=== PATIENT | male | born 1985 | race Caucasian/White ===

== ENCOUNTER 2017-09-14 13:33 | Emergency (ER) | payer SELFPAY ==
[~2017-09-14] VITALS: Ht 182.8 cm; Wt 104.3 kg
[~2017-09-14 13:33] MED LIST: 'PARAFON FORTE500 M1 PO; BACTRIM DS 8001 TA1 PO; BACTROBAN CREAM15 GM T; CEPHALEXIN500 M1 PO; CIPRO500 MG PO; HYDROCODONE BIT1 T11 PO; KEFLEX500 MG PO; MOTRIN800 MG PO; NAPROSYN500 MG PO; NORCO 325 MG-51 TAB PO; OMNICEF300 MG PO; PERCOCET 325 MG1 TA7 PO; SEPTRA DS 800 M1 TAB PO; TRAMADOL HCL50 MG PO; TRIMOX500 MG PO; ULTRAM50 MG PO; VICODIN 5-3001 EACH PO; VICODIN 500 MG-1 TAB PO; VICODIN ES 7501 TAB PO
[2017-09-14] MEDS ORDERED: SEPTDS PO (14:15)
[2017-09-14] MEDS ORDERED: NORCO 5-325 TA1 EACH PO (14:15)
== END 2017-09-14 14:52 | disposition home or self-care (01) ==
LOC: ED 13:33
DX: L02.416 Cutaneous abscess of left lower limb (principal); F17.200 Nicotine dependence, unspecified, uncomplicated

== ENCOUNTER 2019-01-02 13:20 | Emergency (ER) | payer OTHER ==
[~2019-01-02] VITALS: Wt 106.6 kg
[~2019-01-02 13:20] MED LIST changes: +NORCO 5-325 TA1 EACH PO; +SEPTDS PO
[2019-01-02 14:07] LABS: BASO % 0.1 % (0.0-1.0); EOS # 0.2 10*3/uL (0.0-0.4); EOS % 1.9 % (1.0-4.0); HEMATOCRIT 49.3 % (42.0-52.0); HEMOGLOBIN 16.7 g/dl (14.0-18.0); LYMPH % 10.7 % (27.0-41.0); MEAN CELL VOLUME 89.3 fl (80.0-94.0); MEAN CORPUSCULAR HGB 30.3 pg (27.0-31.0); MEAN CORPUSCULAR HGB CONC 33.9 g/dl (33.0-37.0); MEAN PLATELET VOLUME 10.8 fl (9.6-12.3); MONO # 1.1 10*3/uL (0.1-1.0); MONO % 11.7 % (3.0-9.0); NEUT # 7.2 10*3/uL (2.3-7.9); NEUT % 75.3 % (47.0-73.0); PLATELET COUNT AUTOMATED 180 10*3/uL (130-400); RED BLOOD COUNT 5.52 10*6/uL (4.50-5.90); RED CELL DISTRI WIDTH 12.6 % (0-14.5); WHITE BLOOD COUNT 9.5 10*3/uL (4.8-10.8)
[2019-01-02 14:24] LABS: ALBUMIN 3.9 gm/dl (3.1-4.5); ALKALINE PHOSPHATASE 56 U/L (45-117); BUN 18 mg/dl (7-24); CHLORIDE 103 mmol/L (98-107); CREATININE 1.09 mg/dL (0.70-1.30); LIPASE 87 U/L (73-393); SGOT/AST 20 IU/L (3-35); SGPT/ALT 31 U/L (12-78); SODIUM 138 mmol/L (136-145); TOTAL PROTEIN 7.6 gm/dL (6.4-8.2)
[2019-01-02 15:59] LABS: BILIRUBIN NEGATIVE (NEGATIVE); BLOOD NEGATIVE (NEGATIVE); CLARITY CLEAR (CLEAR); COLOR YELLOW (YELLOW); GLUCOSE NEGATIVE (NEGATIVE); KETONE NEGATIVE (NEGATIVE); LEUKO ESTERASE NEGATIVE (NEGATIVE); NITRITE NEGATIVE (NEGATIVE); PH 5.5 (5.0-9.0); UROBILINOGEN 0.2 E.U./dl (0.2-1.0)
[2019-01-02] MEDS ORDERED: ZOFRAN4 MG PO (16:26)
[2019-01-02 16:29] LABS: BACTERIA TRACE; EPITHELIAL CELLS 0-2; WBC 0-2 wbc/hpf (0-5)
== END 2019-01-02 16:40 | disposition home or self-care (01) ==
LOC: ED 13:20
PROVIDERS: Nurse Practitioner Family
DX: A08.4 Viral intestinal infection, unspecified (principal); F17.200 Nicotine dependence, unspecified, uncomplicated; Z87.19 Personal history of other diseases of the digestive system

== ENCOUNTER 2019-09-23 12:39 | Emergency (ER) | payer OTHER ==
[~2019-09-23] VITALS: Ht 182.8 cm; Wt 108.9 kg
[~2019-09-23 12:39] MED LIST changes: +ZOFRAN4 MG PO
[2019-09-23] MEDS ORDERED: IBU800 MG PO (13:49)
[2019-09-23] MEDS ORDERED: ANTIBIOTIC28.4 GM T (13:49)
[2019-09-23] MEDS ORDERED: DOXYCYCLINE100 M3 PO (13:49)
== END 2019-09-23 13:59 | disposition home or self-care (01) ==
LOC: ED 12:39
DX: L02.414 Cutaneous abscess of left upper limb (principal); Z86.14 Personal history of Methicillin resistant Staphylococcus aureus infection

== ENCOUNTER 2019-09-25 10:02 | Emergency (ER) | payer OTHER ==
[~2019-09-25] VITALS: Ht 182.8 cm; Wt 104.3 kg
[~2019-09-25 10:02] MED LIST changes: +ANTIBIOTIC28.4 GM T; +DOXYCYCLINE100 M3 PO; +IBU800 MG PO
[2019-09-25] MEDS ORDERED: CLINDAMYCIN HC300 MG PO (10:59)
[2019-09-25] MEDS ORDERED: NORCO 5-325 TA1 EACH PO (10:59)
== END 2019-09-25 11:00 | disposition home or self-care (01) ==
LOC: ED 10:02
DX: L02.414 Cutaneous abscess of left upper limb (principal)

== ENCOUNTER 2019-12-13 15:52 | Emergency (ER) | payer OTHER ==
[~2019-12-13] VITALS: Ht 180.3 cm; Wt 108.9 kg
[~2019-12-13 15:52] MED LIST changes: +CLINDAMYCIN HC300 MG PO
[2019-12-13] MEDS ORDERED: ANTIBIOTIC28.4 GM T (16:52)
[2019-12-13] MEDS ORDERED: AUGMENTIN 875-875 MG PO (16:52)
== END 2019-12-13 17:42 | disposition home or self-care (01) ==
LOC: ED 15:52
DX: S31.050A Open bite of lower back and pelvis without penetration into retroperitoneum, initial encounter (principal); Z79.899 Other long term (current) drug therapy; W54.0XXA Bitten by dog, initial encounter; Y93.89 Activity, other specified; Y92.89 Other specified places as the place of occurrence of the external cause; Y99.8 Other external cause status

== ENCOUNTER 2019-12-15 20:20 | Emergency (ER) | payer OTHER ==
[~2019-12-15] VITALS: Ht 180.3 cm; Wt 108.9 kg
[~2019-12-15 20:20] MED LIST changes: +AUGMENTIN 875-875 MG PO
== END 2019-12-15 20:54 | disposition home or self-care (01) ==
LOC: ED 20:20
DX: S31.159D Open bite of abdominal wall, unspecified quadrant without penetration into peritoneal cavity, subsequent encounter (principal); Z79.899 Other long term (current) drug therapy; Z79.2 Long term (current) use of antibiotics; W54.0XXD Bitten by dog, subsequent encounter

== ENCOUNTER 2020-07-13 15:37 | Emergency (ER) | payer SELFPAY ==
[~2020-07-13] VITALS: Ht 182.8 cm; Wt 111.1 kg
[2020-07-13] MEDS ORDERED: IBUPROFEN600 MG PO (17:34)
== END 2020-07-13 17:43 | disposition home or self-care (01) ==
LOC: ED 15:37
DX: S80.02XA Contusion of left knee, initial encounter (principal); F17.200 Nicotine dependence, unspecified, uncomplicated; X58.XXXA Exposure to other specified factors, initial encounter; Y93.89 Activity, other specified; Y92.89 Other specified places as the place of occurrence of the external cause; Y99.8 Other external cause status

== ENCOUNTER 2021-06-19 15:15 | Emergency (ER) | payer SELFPAY ==
[~2021-06-19] VITALS: Ht 182.8 cm; Wt 100.7 kg
[~2021-06-19 15:15] MED LIST changes: +IBUPROFEN600 MG PO
== END 2021-06-19 17:06 | disposition left against medical advice (07) ==
LOC: ED 15:15
DX: M25.562 Pain in left knee (principal); Z53.21 Procedure and treatment not carried out due to patient leaving prior to being seen by health care provider

== ENCOUNTER 2023-10-09 11:50 | Emergency (ER) | payer OTHER ==
[~2023-10-09] VITALS: Ht 182.8 cm; Wt 99.8 kg
[~2023-10-09 11:50] MED LIST changes: +VIBRAMYCIN100 MG PO
[2023-10-09] MEDS ORDERED: MELOXICAM15 MG PO (12:55)
[2023-10-09] MEDS ORDERED: CYCLOBENZAPRINE10 MG PO (12:55)
== END 2023-10-09 13:14 | disposition home or self-care (01) ==
LOC: ED 11:50
DX: S46.002A Unspecified injury of muscle(s) and tendon(s) of the rotator cuff of left shoulder, initial encounter (principal); M25.511 Pain in right shoulder; R53.1 Weakness; F17.200 Nicotine dependence, unspecified, uncomplicated; Z79.2 Long term (current) use of antibiotics; X50.1XXA Overexertion from prolonged static or awkward postures, initial encounter; Y93.9 Activity, unspecified; Y92.89 Other specified places as the place of occurrence of the external cause; Y99.8 Other external cause status

== ENCOUNTER → 2024-11-19 | Outpatient (CLI) | payer OTHER ==
[~2024-11-19] MED LIST changes: +CYCLOBENZAPRINE10 MG PO; +MELOXICAM15 MG PO
[2024-11-19 16:33] LABS: BASO % 0.3 % (0.0-1.0); EOS # 0.6 10*3/uL (0.0-0.4); EOS % 5.6 % (1.0-4.0); HEMATOCRIT 50.7 % (42.0-52.0); MEAN CELL VOLUME 90.4 fl (80.0-94.0); MEAN CORPUSCULAR HGB 29.2 pg (27.0-31.0); MEAN CORPUSCULAR HGB CONC 32.3 g/dl (33.0-37.0); MEAN PLATELET VOLUME 11.4 fl (9.6-12.3); MONO % 8.7 % (3.0-9.0); NEUT % 55.1 % (47.0-73.0); PLATELET COUNT AUTOMATED 229 10*3/uL (130-400); RED BLOOD COUNT 5.61 10*6/uL (4.50-5.90); RED CELL DISTRI WIDTH 12.8 % (0-14.5); WHITE BLOOD COUNT 10.9 10*3/uL (4.8-10.8)
[2024-11-19 16:46] LABS: ALKALINE PHOSPHATASE 59 U/L (46-116); BUN 14 mg/dl (9-23); CHLORIDE 106 mmol/L (98-107); CHOLESTEROL 203 mg/dL (<200); LDL CHOLESTEROL 135 mg/dL (9-159); POTASSIUM 4.4 mmol/L (3.4-5.1); SGPT/ALT 22 U/L (5-49); TOTAL PROTEIN 7.2 gm/dL (6.0-8.0); TRIGLYCERIDES 105 mg/dl (<150)
[2024-11-20 14:07] LABS: ANTI-DSDNA ANTIBODIES 2 IU/mL (0-9); ANTI-RNP ANTIBODIES <0.2 AI (0.0-0.9); ANTICHROMATIN ANTIBODIES <0.2 AI (0.0-0.9); ANTISCLERODERMA-70 AB <0.2 AI (0.0-0.9)
== END | disposition home or self-care (01) ==
LOC: LAB 11:59
PROVIDERS: ATTEND Nurse Practitioner Family
DX: Z13.0 Encounter for screening for diseases of the blood and blood-forming organs and certain disorders involving the immune mechanism (principal); Z13.228 Encounter for screening for other metabolic disorders; Z13.220 Encounter for screening for lipoid disorders; Z76.89 Persons encountering health services in other specified circumstances; Z13.29 Encounter for screening for other suspected endocrine disorder; M25.50 Pain in unspecified joint

== ENCOUNTER → 2025-01-08 | Outpatient (CLI) | payer OTHER | END | disposition home or self-care (01) | LOC: RAD 09:59 | PROVIDERS: ATTEND Nurse Practitioner Family | DX: M25.562 Pain in left knee (principal); M25.511 Pain in right shoulder ==

== ENCOUNTER 2025-06-26 21:05 | Emergency (ER) | payer OTHER ==
[~2025-06-26] VITALS: Ht 182.8 cm; Wt 102.1 kg
[2025-06-26] MEDS ORDERED: MELOXICAM15 MG PO (23:11)
== END 2025-06-26 23:19 | disposition home or self-care (01) ==
LOC: ED 21:05
DX: M67.432 Ganglion, left wrist (principal)

== ENCOUNTER 2025-08-27 18:58 | Emergency (ER) | payer OTHER ==
[~2025-08-27] VITALS: Ht 182.8 cm; Wt 99.8 kg
[2025-08-27 20:14] LABS: MEAN CELL VOLUME 88.7 fl (80.0-94.0); MEAN CORPUSCULAR HGB 29.7 pg (27.0-31.0); MEAN PLATELET VOLUME 9.8 fl (9.6-12.3); NUCLEATED RED BLOOD CELL 0.0 % (0.0-0.0); NUCLEATED RED BLOOD CELL 0.0 10*3/uL (0.0-0.0); PLATELET COUNT AUTOMATED 178 10*3/uL (130-400); RED CELL DISTRI WIDTH 13.0 % (0-14.5)
[2025-08-27 20:15] LABS: MANUAL DIFF REFLEX YES
[2025-08-27 20:35] LABS: PLATELET SUFFICIENCY NORMAL (NORMAL)
[2025-08-27 20:41] LABS: BUN 16 mg/dl (9-23)
== END 2025-08-27 20:56 | disposition home or self-care (01) ==
LOC: ED 18:58
PROVIDERS: Nurse Practitioner Family
DX: U07.1 COVID-19 (principal)